=== PATIENT | male | born 1955 | race Caucasian/White ===

== ENCOUNTER 2017-12-29 02:13 | Day surgery (SDC) | payer OTHER ==
[2017-12-28 12:14] LABS: BASOPHIL % 0.5 % (0.0-0.2); EOSINOPHIL # 0.2 10^3/uL (0.0-0.2); EOSINOPHIL % 3.5 % (0.0-5.0); HEMOGLOBIN 15.3 g/dL (13.9-16.3); LYMPHOCYTES # 1.1 10^3/uL (1.0-4.8); LYMPHOCYTES % 16.5 % (24.0-44.0); MEAN CELL HGB 29.1 pg (26-34); MEAN CELL HGB CONCENTRATION 34.2 g/dL (33-37); MEAN PLATELET VOLUME 9.7 fL (7.8-11.0); MONOCYTES % 15.1 % (5.0-12.0); NEUTROPHIL # 4.2 10^3/uL (1.8-7.7); NEUTROPHILS % 64.1 % (41.0-85.0); RED CELL DISTRIBUTION WIDTH 13.6 % (11.5-14.5); WHITE BLOOD CELL 6.5 10^3/uL (4.5-11.0)
--- NOTE | 2017-12-28 12:26 | PCM.EKG ---
[facility] Test Date: 2017-12-28 Test Time: 12:30:06 Pat Name: MARY FONTENOT Department: Patient ID: [facility]-[id number] Room: Gender: M Still Tender: : 1955 Requested By: MAYELIN RAMOS Order Number: [id number] Reading MD: Niam Higgins Measurements Intervals [place] Rate: 57 P: 33 MO: 148 QRS: 44 QRSD: 86 T: 52 QT: 408 QTc: 397 Interpretive Statements Sinus bradycardia Otherwise normal ECG No previous ECG available for comparison Electronically Signed On 12-28-2017 12:36:47 CDT by Nima Higgins Please click the below link to view image of tracing.
[2017-12-28 12:41] LABS: CARBON DIOXIDE 27.9 mmol/L (20.0-32)
[~2017-12-29] VITALS: Ht 188 cm; Wt 96.2 kg
[2017-12-29] MEDS ORDERED: LEVAQUIN 100 ML IV ONE (05:30)
[2017-12-29] MEDS ORDERED: LACTATED RINGERS 1,000 ML ONE (05:30)
[2017-12-29] MEDS ORDERED: LASIX ONE (05:30)
[2017-12-29] MEDS ORDERED: VERSED ONE (06:30)
[2017-12-29] MEDS ORDERED: LIDOCAINE 2% VIAL ONE (06:30)
[2017-12-29] MEDS ORDERED: SUBLIMAZE ONE ×2 (06:31→06:57)
[2017-12-29] MEDS ORDERED: DIPRIVAN IV ONE ×2 (06:31→06:57)
[2017-12-29] MEDS ORDERED: ZOFRAN ONE (06:57)
[2017-12-29] MEDS ORDERED: DECADRON ONE (06:57)
[2017-12-29] MEDS ORDERED: PHENERGAN IV PRN (08:00)
[2017-12-29] MEDS ORDERED: ZOFRAN IV PRN (08:00)
[2017-12-29] MEDS ORDERED: SUBLIMAZE IV PRN (08:00)
[2017-12-29 09:30] VITALS: BP 138/76
[2017-12-29] MEDS ORDERED: NS 3000ML IRR IR ONE (10:20)
[2017-12-29] MEDS ORDERED: SODIUM CHLORIDE IR ONE (10:20)
[2017-12-29] MEDS ORDERED: LACTATED RINGERS 1,000 ML IV SCH ×2 (11:00→12:30)
[2017-12-29 12:09] VITALS: BP 129/77
[2017-12-29] MEDS ORDERED: EPHEDRINE SULFATE ONE (12:13)
[2017-12-29 12:24] VITALS: BP 140/97
[2017-12-29] MEDS ORDERED: NORCO 7.5MG PO PRN (12:30)
[2017-12-29] MEDS ORDERED: LASIX IV SCH (12:30)
[2017-12-29] MEDS ORDERED: TRAM50TA PO (12:31)
[2017-12-29] MEDS ORDERED: CIPR500T86 PO (12:31)
[2017-12-29] MEDS ORDERED: TAMS0.4C2 PO (12:31)
[2017-12-29 12:32] VITALS: BP 151/85
[2017-12-29 12:45] VITALS: BP 144/72
[2017-12-29 13:00] VITALS: BP 129/80
--- NOTE | 2017-12-29 13:59 | DIREP ---
PROCEDURE:XRAY UROGRAPHY RETROGRADE COMPARISON:None. INDICATIONS:STONE, 10 CC [id number], 32.97 MGY, 101.3 SEC FLUORO, 7 FLIMS TECHNIQUE:7 intraoperative views of the abdomen were performed during left retrograde pyelogram. Fluoroscopy time performed was 101.3 seconds. FINDINGS:There is partial opacification of the left renal collecting system which is dilated with a probable large calculus in left renal pelvis. A subsequent film shows placement of a left ureteral stent in good position. CONCLUSION:Placement of a left ureteral stent in good position. Dictated by: Portillo Ly M.D. on 12/29/2017 at 01:56 PM
--- NOTE | 2017-12-29 15:24 | OPH ---
DATE OF SURGERY: 12/29/2017 PREOPERATIVE DIAGNOSIS: Large calculus, left renal pelvis. FINAL DIAGNOSIS: Large calculus, left renal pelvis. PROCEDURES: Cystoscopy left retrograde with insertion of stent and left ESWL. DESCRIPTION OF PROCEDURE: The patient was initially brought to the cystoscopy room and put in supine position on the cystoscopy table. After the patient was given a satisfactory adequate LMA general anesthesia, the patient was placed in the lithotomy position. The genitalia was then prepped and draped aseptically in the usual manner. First, a 20-Estonian cystoscope was inserted per urethra up to the bladder. With the use of the right angle lens, the bladder was visualized. There was no tumor, no calculi, no ulcerations seen. Both ureteral orifices were normal. The initial left retrograde was done by inserting a 7-Estonian ureteral catheter in the left ureteral orifice and injected with Isovue dye and the left ureter was normal, no evidence of stone or obstruction, but there is a large stone noted in the left renal pelvis. A double-J 6-Estonian ureteral stent was inserted through the Glidewire from the left ureteral orifice all the way to the left kidney. After this was done, the Glidewire was removed. The bladder was emptied with fluid with water and then after that instrument was removed. Procedure was terminated. The patient was then put back in supine position. He was then transferred to the main lithotripsy room. After localization of the stone with the use of an ultrasound and fluoroscopy, left ESWL was then performed using a Dornier Compact Delta II Lithotripter. A total of 2500 shockwaves were delivered to the stones in the left renal pelvis under ultrasound guidance. After fragmentation of the stone as noted in the fluoroscopy and ultrasound, the procedure was terminated. The patient was awakened, was transferred to the recovery room in stable condition. Jg Mortensen MD DR: CRISTHIAN/david JOB# [id number]
== END 2017-12-29 13:10 | disposition home or self-care (01) ==
LOC: SDC 02:13
PROVIDERS: ATTEND Urology
DX: N20.0 Calculus of kidney (principal); F20.9 Schizophrenia, unspecified; F19.11 Other psychoactive substance abuse, in remission; E66.3 Overweight; Z68.27 Body mass index [BMI] 27.0-27.9, adult; Z79.2 Long term (current) use of antibiotics; Z79.899 Other long term (current) drug therapy; Z98.890 Other specified postprocedural states; Z87.891 Personal history of nicotine dependence; Z82.49 Family history of ischemic heart disease and other diseases of the circulatory system; Z82.5 Family history of asthma and other chronic lower respiratory diseases
CPT/HCPCS: 36415; 50590; 52332; 74420; 80051; 82565; 84520; 85025; 85610; 85730; 93005; A4217 ×2; J1100; J1956; J2001; J2250; J2405; J3010 ×2; J3490 ×3; J7120; Q9966; 76000; C1758; C1769; C2617; J1940

== ENCOUNTER 2018-01-10 01:04 | Day surgery (SDC) | payer OTHER ==
[~2018-01-10] VITALS: Ht 188 cm; Wt 96.2 kg
[2018-01-10] VITALS (8 sets, daily range): BP systolic 116–154; BP diastolic 71–98
[~2018-01-10 01:04] MED LIST: CIPR500T86 PO; TAMS0.4C2 PO; TRAM50TA PO
[2018-01-10] MEDS ORDERED: LACTATED RINGERS 1,000 ML ONE ×2 (06:17→09:56)
[2018-01-10] MEDS ORDERED: LEVAQUIN 100 ML IV ONE (06:18)
[2018-01-10] MEDS ORDERED: TORADOL ONE (06:45)
[2018-01-10] MEDS ORDERED: LIDOCAINE 2% VIAL ONE (06:45)
[2018-01-10] MEDS ORDERED: DECADRON ONE (06:45)
[2018-01-10] MEDS ORDERED: ZOFRAN ONE (06:45)
[2018-01-10] MEDS ORDERED: DIPRIVAN IV ONE (06:46)
[2018-01-10] MEDS ORDERED: SUBLIMAZE ONE (06:46)
[2018-01-10] MEDS ORDERED: VERSED ONE (06:46)
[2018-01-10] MEDS ORDERED: LACTATED RINGERS 1,000 ML IV SCH ×2 (07:00→10:00)
[2018-01-10] MEDS ORDERED: SODIUM CHLORIDE IR ONE (08:57)
[2018-01-10] MEDS ORDERED: NS 3000ML IRR IR ONE (08:57)
[2018-01-10] MEDS ORDERED: LACTATED RINGERS 1,000 ML SCH (10:00)
[2018-01-10] MEDS ORDERED: MORPHINE SULFATE IV PRN (10:00)
[2018-01-10] MEDS ORDERED: SUBLIMAZE IV PRN (10:00)
[2018-01-10] MEDS ORDERED: PHENERGAN IV PRN (10:00)
--- NOTE | 2018-01-10 14:29 | DIREP ---
PROCEDURE:XRAY FLUOROSCOPY COMPARISON:[facility], , XRAY UROGRAPHY RETROGRADE, 12/29/2017, 09:12 AM. INDICATIONS:stent removal, 80.7 SECONDS FLUORO, 240.0 mGy TECHNIQUE:10 fluoroscopic images were obtained during urologic procedure. FINDINGS: Images demonstrate left ureteral stent with multiple fluoroscopic images demonstrating removal of left ureteral stent. Fifty radiopaque densities are suggested overlying the left renal shadow which may reflect stones versus artifact, wire passage on subsequent fluoroscopic images may relate to stone retrieval. Total fluoroscopic time 81 seconds. CONCLUSION: 1. Left renal stent removal and possible stone retrieval. Dictated by: Elton Moore M.D. on 01/10/2018 at 02:20 PM
--- NOTE | 2018-01-10 16:42 | OPH ---
DATE OF SURGERY: 01/10/2018 PREOPERATIVE DIAGNOSIS: Left renal calculus, status post extracorporeal shockwave lithotripsy with an indwelling left ureteral stent. FINAL DIAGNOSES: Left renal calculus, status post extracorporeal shockwave lithotripsy with an indwelling left ureteral stent and presence of residual stones in the left upper ureter. PROCEDURES: Cystoscopy, removal of left ureteral stent, left ureteroscopy with the ureteral basket stone extraction. DESCRIPTION OF PROCEDURE: The patient was brought to the cystoscopy room and was put in supine position on the cystoscopy table. After the patient was given a satisfactory and adequate general anesthesia, the patient was placed in the lithotomy position. The patient was then prepped and draped aseptically in the usual manner. First, the 22-Malawian cystoscope was inserted per urethra up to the bladder. With the use of the right angle lens, the bladder was visualized. There was some congestion noted and the presence of stent in the left ureteral orifice. The ureteral stent was then removed and then exchanged with a Glidewire and the Glidewire was inserted all the way up to the left renal pelvis. After that, the cystoscope was removed and then a 7-Malawian semirigid ureteroscope was inserted per urethra up to the bladder to the left orifice all the way to the left upper ureter and there was some residual stones noted in the left upper ureter from the shockwave lithotripsy of the left kidney stones. Basket stone extraction was then performed through the ureteroscope. After this was done, the rest of the ureter was visualized. There was no more stone noted. The ureteroscope was removed including the Glidewire and then a cystoscope was reinserted to the bladder and the bladder was emptied with fluid. After this, the procedure was terminated. Instrument was removed. The patient was then awakened and was transferred to the recovery room in stable condition. Jg Mortensen MD DR: CRISTHIAN/david JOB# [id number]
== END 2018-01-10 10:53 | disposition home or self-care (01) ==
LOC: SURG 01:04
PROVIDERS: ATTEND Urology
DX: N20.0 Calculus of kidney (principal); F19.11 Other psychoactive substance abuse, in remission; E66.3 Overweight; Z68.27 Body mass index [BMI] 27.0-27.9, adult; Z86.19 Personal history of other infectious and parasitic diseases; Z79.899 Other long term (current) drug therapy; Z79.2 Long term (current) use of antibiotics; Z87.891 Personal history of nicotine dependence; Z82.5 Family history of asthma and other chronic lower respiratory diseases; Z82.49 Family history of ischemic heart disease and other diseases of the circulatory system
CPT/HCPCS: 36415; 52352; A4217 ×2; J1100; J1885; J1956; J2001; J2250; J2405; J3010; J3490; J7120 ×2; 76000; C1769; C1894